=== PATIENT | male | born 1980 | race Caucasian/White ===

== ENCOUNTER 2016-10-31 04:45 | Emergency (ER) | payer OTHER ==
[2016-10-31 08:23] LABS: BASOPHIL % 0.4 % (0-2); PLATELET COUNT 210 x10^3mcL (130-400); RED CELL DISTRIBUTION WIDTH 13.8 % (11.5-14.5)
[2016-10-31 08:32] LABS: CARBON DIOXIDE 28.1 mmol/L (21-32); CHLORIDE SERUM 103 mmol/L (98-107); GFR1 > 60 mL/min; GLUCOSE SERUM 98 mg/dL (74-106); SODIUM SERUM 138 mmol/L (136-145)
[2016-10-31 08:36] LABS: ALKALINE PHOSPHATASE 59 U/L (46-116); ALT/SGPT 29 U/L (16-63); AMYLASE 59 U/L (25-115); AST/SGOT 24 U/L (15-37); BILIRUBIN TOTAL 1.63 mg/dL (0.20-1.00); LIPASE 128 IU/L (73-393); TOTAL PROTEIN, SERUM 7.7 g/dL (6.4-8.2)
[2016-10-31 10:07] VITALS: BP 102/71
== END 2016-10-31 10:07 | disposition home or self-care (01) ==
LOC: ED 04:45
PROVIDERS: Specialist
DX: R10.12 Left upper quadrant pain (principal); R19.7 Diarrhea, unspecified
CPT/HCPCS: 83880; J7030; Q0092

== ENCOUNTER 2017-10-11 02:42 | Emergency (ER) | payer OTHER ==
[~2017-10-11] VITALS: Ht 175.3 cm; Wt 97.5 kg
[2017-10-11 06:04] VITALS: BP 114/69
== END 2017-10-11 06:04 | disposition home or self-care (01) ==
LOC: ED 02:42
DX: G43.909 Migraine, unspecified, not intractable, without status migrainosus (principal); M54.5 Low back pain; F31.9 Bipolar disorder, unspecified; Z88.8 Allergy status to other drugs, medicaments and biological substances
CPT/HCPCS: J1885; J2550

== ENCOUNTER 2018-09-28 05:25 | Emergency (ER) | payer SELFPAY ==
[~2018-09-28] VITALS: Ht 175.3 cm; Wt 99.8 kg
[2018-09-28 05:32] VITALS: BP 128/87; Ht 175.3 cm; Wt 99.8 kg
== END 2018-09-28 07:45 | disposition left against medical advice (07) ==
LOC: ED 05:25
DX: Z53.21 Procedure and treatment not carried out due to patient leaving prior to being seen by health care provider (principal)

== ENCOUNTER 2018-11-24 16:15 | Emergency (ER) | payer MEDICAID ==
[~2018-11-24] VITALS: Ht 175.3 cm; Wt 103.0 kg
[2018-11-24 16:19] VITALS: Ht 175.3 cm; Wt 103.0 kg
[2018-11-24 17:10] LABS: BASOPHIL % 0.7 % (0-2); PLATELET COUNT 231 x10^3mcL (130-400); RED CELL DISTRIBUTION WIDTH 13.4 % (11.5-14.5)
[2018-11-24 17:12] LABS: CALCIUM 8.8 mg/dL (8.5-10.1); CARBON DIOXIDE 24.3 mmol/L (21-32); CHLORIDE SERUM 105 mmol/L (98-107); CREATININE SERUM 1.1 mg/dL (0.7-1.3); GFR1 > 60 mL/min; GLUCOSE SERUM 117 mg/dL (74-106); SODIUM SERUM 140 mmol/L (136-145)
[2018-11-24 17:17] LABS: ALBUMIN 3.7 g/dL (3.4-5.0); ALKALINE PHOSPHATASE 67 U/L (46-116); ALT/SGPT 120 U/L (16-63); BILIRUBIN TOTAL 0.8 mg/dL (0.20-1.00); TOTAL PROTEIN, SERUM 7.8 g/dL (6.4-8.2); URIC ACID 6.3 mg/dL (3.5-7.2)
[2018-11-24 17:44] LABS: AST/SGOT 63 U/L (15-37)
[2018-11-24 17:50] LABS: microscopic required? NO
[2018-11-24 18:06] LABS: urine erythrocyte NEGATIVE (NEGATIVE)
[2018-11-24 20:30] VITALS: BP 107/60
== END 2018-11-24 20:30 | disposition home or self-care (01) ==
LOC: ED 16:15
PROVIDERS: Emergency Medicine
DX: M54.5 Low back pain (principal); R32 Unspecified urinary incontinence; F31.9 Bipolar disorder, unspecified; Z85.038 Personal history of other malignant neoplasm of large intestine; Z98.890 Other specified postprocedural states; Z88.8 Allergy status to other drugs, medicaments and biological substances
CPT/HCPCS: J1885; J2405; Q9967

== ENCOUNTER 2018-12-02 08:11 | Emergency (ER) | payer MEDICAID ==
[~2018-12-02] VITALS: Ht 175.3 cm; Wt 103.0 kg
[2018-12-02 08:14] VITALS: Ht 175.3 cm; Wt 103.0 kg
[2018-12-02 08:59] VITALS: BP 118/80
== END 2018-12-02 08:59 | disposition home or self-care (01) ==
LOC: ED 08:11
DX: G43.909 Migraine, unspecified, not intractable, without status migrainosus (principal); Z76.0 Encounter for issue of repeat prescription
CPT/HCPCS: J1885; Q0162

== ENCOUNTER 2019-04-18 03:48 | Emergency (ER) | payer MEDICAID ==
[~2019-04-18] VITALS: Ht 175.3 cm; Wt 98.0 kg
[2019-04-18 05:16] VITALS: BP 116/77
== END 2019-04-18 05:16 | disposition home or self-care (01) ==
LOC: ED 03:48
DX: B34.9 Viral infection, unspecified (principal); J02.9 Acute pharyngitis, unspecified; G43.909 Migraine, unspecified, not intractable, without status migrainosus; Z85.038 Personal history of other malignant neoplasm of large intestine; Z88.8 Allergy status to other drugs, medicaments and biological substances

== ENCOUNTER 2019-11-15 09:18 | Emergency (ER) | payer OTHER ==
[~2019-11-15] VITALS: Ht 175.3 cm; Wt 103.0 kg
[2019-11-15 09:26] VITALS: Ht 175.3 cm; Wt 103.0 kg
[2019-11-15 11:24] VITALS: BP 127/71
== END 2019-11-15 11:30 | disposition home or self-care (01) ==
LOC: ED 09:18
DX: M62.830 Muscle spasm of back (principal); H61.22 Impacted cerumen, left ear; G43.909 Migraine, unspecified, not intractable, without status migrainosus; Z85.038 Personal history of other malignant neoplasm of large intestine; Z88.8 Allergy status to other drugs, medicaments and biological substances
CPT/HCPCS: 72072; J1885

== ENCOUNTER 2019-11-24 02:24 | Emergency (ER) | payer OTHER ==
[~2019-11-24] VITALS: Ht 175.3 cm; Wt 102.1 kg
[2019-11-24 02:30] VITALS: Ht 175.3 cm; Wt 102.1 kg
[2019-11-24 03:28] VITALS: BP 108/80
== END 2019-11-24 03:28 | disposition home or self-care (01) ==
LOC: ED 02:24
DX: G43.909 Migraine, unspecified, not intractable, without status migrainosus (principal); Z85.038 Personal history of other malignant neoplasm of large intestine; Z88.8 Allergy status to other drugs, medicaments and biological substances
CPT/HCPCS: J1885

== ENCOUNTER 2019-12-25 13:24 | Emergency (ER) | payer OTHER ==
[~2019-12-25] VITALS: Ht 175.3 cm; Wt 102.5 kg
[2019-12-25 13:37] VITALS: BP 140/89; Ht 175.3 cm; Wt 102.5 kg
== END 2019-12-25 15:14 | disposition home or self-care (01) ==
LOC: ED 13:24
DX: G43.909 Migraine, unspecified, not intractable, without status migrainosus (principal); Z85.038 Personal history of other malignant neoplasm of large intestine
CPT/HCPCS: J1100; J1885